=== PATIENT | male | born 1975 | race Caucasian/White ===

== ENCOUNTER 2017-09-02 16:50 | Inpatient (IN) | payer OTHER ==
[~2017-09-02] VITALS: Ht 177.8 cm; Wt 98.4 kg
[2017-09-02 16:58] VITALS: BP 143/72
[2017-09-02] MEDS ORDERED: ANDRODERM1 EAC2 PO (17:03)
[2017-09-02 17:17] LABS: ABSOLUTE BASOPHILS 0.1 thou/uL (0.0-0.2); ABSOLUTE LYMPHOCYTES 2.6 thou/uL (0.8-5.3); ABSOLUTE MONOCYTES 0.9 thou/uL (0.0-1.2); ABSOLUTE NEUTROPHILS 10.6 thou/uL (1.6-8.1); BASOPHILS 0.9 %; EOSINOPHILS 0.1 %; HEMATOCRIT 54.6 % (42.0-52.0); HEMOGLOBIN 18.1 gm/dL (14.0-18.0); LYMPHOCYTES 18.5 %; MCH 29.8 pg (26.0-34.0); MCHC 33.2 g/dL (28.0-37.0); MCV 89.7 fL (80.0-100.0); MPV 7.4 fl. (7.2-11.1); NUCLEATED RBCS 0 /100WBC; PLATELET COUNT* 279 thou/uL (150-400); POLYS 74.5 %; RBC 6.09 mil/uL (4.50-6.00); RDW-CV 12.9 % (10.5-14.5); WBC 14.2 thou/uL (4.0-11.0)
[2017-09-02 17:30] LABS: ANION GAP 10 mmol/L (7-16); BUN 15 mg/dL (7-18); CALCIUM 9.2 mg/dL (8.5-10.1); CHLORIDE 104 mmol/L (98-107); CO2 27 mmol/L (21-32); CREATININE 1.3 mg/dL (0.6-1.3); GLUCOSE 113 mg/dL (70-99); POTASSIUM 3.6 mmol/L (3.5-5.1); SODIUM 141 mmol/L (136-145)
[2017-09-02 17:34] LABS: APTT 28.2 Seconds (25.0-31.3); PROTIME 9.8 Seconds (9.20-11.50)
[2017-09-02 17:53] LABS: ALBUMIN 4.1 g/dL (3.4-5.0); ALKALINE PHOSPHATASE 54 U/L (46-116); CK-MB MASS 1.4 ng/mL (<0.5-3.6); LIPASE 182 U/L (73-393); NT-PRO BRAIN NAT PEPTIDE 1683 pg/mL (<300); SGOT 24 U/L (15-37); SGPT 44 U/L (30-65); TOTAL BILIRUBIN 0.8 mg/dL (<0.1-1.0); TOTAL PROTEIN 7.8 g/dL (6.4-8.2); TROPONIN-I LEVEL <0.06 ng/mL (<0.06)
[2017-09-02 19:33] VITALS: BP 117/68
[2017-09-02 21:00] VITALS: BP 117/70
--- NOTE | 2017-09-02 21:08 | NUR ---
PT ARRIVED TO UNIT AT 1930. PT STATED HE HAS RECENTLY STARTED TAKING TESTOSTERONE SHOTS EVERY TWO WEEKS. HE STATED THAT LAST TIME HIS HEART FELT LIKE THIS, HE WAS ALSO TAKING TESTOSTERONE SHOTS FROM THE [facility] EVERY WEEK. PT WONDERING IF MEDICATION IS MAKING HIS HEART GO INTO AFIB.
[2017-09-02 22:00] VITALS: BP 112/68
[2017-09-02 23:00] VITALS: BP 103/61
[2017-09-03] VITALS (12 sets, daily range): BP systolic 99–131; BP diastolic 61–89
--- NOTE | 2017-09-03 06:39 | NUR ---
PT NOT PROGRESSING TOWARD GOALS. WHILE PT SLEEPS, HR STAYS BETWEEN 70-90. WHILE AWAKE, PT HR INCREASES TO 120-140'S. PT STATES HIS [id number] IS CURRENTLY ON HOSPICE CARE FOR END STAGE CANCER. HAS A LOT OF STRESS IN HIS LIFE AND RECENTLY STARTED TAKING TESTOSTERONE SHOTS.
[2017-09-03 08:27] LABS: TROPONIN-I LEVEL <0.06 ng/mL (<0.06)
[2017-09-03 10:42] LABS: AMP/METHAMP Negative (Negative); BARBITURATES Negative (Negative); BENZODIAZEPINES Negative (Negative); COCAINE Negative (Negative); METHADONE Negative (Negative); OPIATES Negative (Negative); PCP Negative (Negative); THC Negative (Negative)
--- NOTE | 2017-09-03 11:17 | EKG ---
[place] [address] ELECTROCARDIOGRAM REPORT Name: CAITLIN BLANC Room: [address] ADM IN .R.#: [id number] Admission: 09/02/17 Attend Phys: Justin Addison Discharge: Date of : 79 Report #: [id number] THIS REPORT FOR: //name// [facility] ED Test Date: 2017-09-02 Test Time: 16:55:28 Pat Name: CAITLIN BLANC Department: Room: [facility] Gender: M Automation Tender: MARY : 1975 Requested By: Jarrod Werner Order Number: [id number] MD: Braxton Simms Measurements Intervals [place] Rate: 186 P: NC: QRS: 38 QRSD: 70 T: 57 QT: 238 QTc: 419 Interpretive Statements Atrial fibrillation with rapid V-rate ST depression, probably rate related Baseline wander in lead(s) V2 No previous ECG available for comparison Electronically Signed On 09-03-2017 11:17:42 REVIEW NURSE by Braxton Simms [email or web address] <ELECTRONICALLY SIGNED> By: Braxton Simms MD, [facility] 09/03/17 1117 1655 165 Braxton Simms MD, [facility] /EPI
--- NOTE | 2017-09-03 11:20 | NUR ---
PATIENT CONVERTED TO SINUS RHYTHM ON 20MG OF CARDIZEM GTT.
--- NOTE | 2017-09-03 11:32 | EKG ---
[place] [address] ELECTROCARDIOGRAM REPORT Name: CAITLIN BLANC Room: [address] ADM IN M.R.#: [id number] Admission: 09/02/17 Attend Phys: Justin Addison Discharge: Date of : 79 Report #: [id number] THIS REPORT FOR: //name// [facility] Test Date: 2017-09-03 Test Time: 10:44:18 Pat Name: CAITLIN BLANC Department: Room: [address] Gender: M Corporate Bond Trader: : 1975 Requested By: Chava Velasco Order Number: [id number] Shiela MD: Braxton Simms Measurements Intervals [place] Rate: 86 P: 53 NC: 159 QRS: 32 QRSD: 77 T: 17 QT: 318 QTc: 381 Interpretive Statements Sinus rhythm Electronically Signed On 09-03-2017 11:32:13 COMMERCIAL LINES UNDERWRITER by Braxton Simms [email or web address] <ELECTRONICALLY SIGNED> By: Braxton Simms MD, [facility] 09/03/17 1132 1044 1044 Braxton Simms MD, FACC /EPI
--- NOTE | 2017-09-03 13:38 | NUR ---
REPORT RECEIVED FROM LUISITO AGUAYO AGREED WITH PREVIOUS CHARTED ASSESSMENT. PT DENIES PAIN FISCAL ACCOUNTANT TRACING SR AT THIS TIME. PO MEDS GIVEN AND CARTIZEM GTT STOPPED PER DR BADILLO. FAMILY AT BEDSIDE. PT CHANGED TO TELE STATUS. BED IN LOWEST POSITOIN-CALL LIGHT WITHIN REACH-WILL CONTINUE TO MONITOR.
--- NOTE | 2017-09-03 14:28 | EKG ---
[place] [address] ELECTROCARDIOGRAM REPORT Name: CAITLIN BLANC Room: [address] ADM IN M.R.#: [id number] Admission: 09/02/17 Attend Phys: Justin Addison Discharge: Date of : 79 Report #: [id number] THIS REPORT FOR: //name// [facility] ED Test Date: 2017-09-02 Test Time: 17:39:17 Pat Name: CAITLIN BLANC Department: Room: [address] Gender: M Educational Assistant: BO : 1975 Requested By: Jarrod Werner Order Number: [id number] Shiela MD: Braxton Simms Measurements Intervals [place] Rate: 175 P: NM: QRS: 41 QRSD: 69 T: 31 QT: 256 QTc: 437 Interpretive Statements Atrial fibrillation Anterior infarct, old Compared to ECG 09/02/2017 16:55:28 no change Electronically Signed On 09-03-2017 14:28:22 ELEVATOR ERECTOR HELPER by Braxton Simms [email or web address] <ELECTRONICALLY SIGNED> By: Braxton Simms MD, [facility] 09/03/17 1428 1739 173 Braxton Simms MD, FACC /EPI
--- NOTE | 2017-09-03 18:03 | NUR ---
PT SITTING UP IN BED TALKING WITH FAMILY. ASSESSMENT CONSULTANT STILL TRACKING SR. O2 ON ROOM AIR NO S/S OF RESP DISTESS. DENIES PAIN. VOID VIA URINAL. TOLERATING DIET. BED IN LOWEST POSITION-CALL LIGHT WITHIN REACH-WILL CONTINUE TO MONITOR. TELE STATUS AT THIS TIME.
[2017-09-04] VITALS (9 sets, daily range): BP systolic 101–136; BP diastolic 67–90
[2017-09-04 02:52] LABS: ABSOLUTE BASOPHILS 0.1 thou/uL (0.0-0.2); ABSOLUTE EOSINOPHILS 0.1 thou/uL (0.0-0.7); ABSOLUTE LYMPHOCYTES 3.2 thou/uL (0.8-5.3); ABSOLUTE MONOCYTES 0.7 thou/uL (0.0-1.2); ABSOLUTE NEUTROPHILS 5.8 thou/uL (1.6-8.1); EOSINOPHILS 0.7 %; HEMATOCRIT 49.7 % (42.0-52.0); HEMOGLOBIN 16.5 gm/dL (14.0-18.0); LYMPHOCYTES 32.1 %; MCH 29.7 pg (26.0-34.0); MCHC 33.1 g/dL (28.0-37.0); MCV 89.5 fL (80.0-100.0); MONOCYTES 7.3 %; MPV 7.3 fl. (7.2-11.1); NUCLEATED RBCS 0 /100WBC; PLATELET COUNT* 236 thou/uL (150-400); POLYS 58.9 %; RBC 5.55 mil/uL (4.50-6.00); RDW-CV 12.9 % (10.5-14.5); WBC 9.9 thou/uL (4.0-11.0)
[2017-09-04 02:57] LABS: ANION GAP 6 mmol/L (7-16); BUN 12 mg/dL (7-18); CALCIUM 8.4 mg/dL (8.5-10.1); CHLORIDE 106 mmol/L (98-107); CHOLESTEROL 229 mg/dL (<200); CO2 29 mmol/L (21-32); CREATININE 1.2 mg/dL (0.6-1.3); GLUCOSE 93 mg/dL (70-99); HDL CHOLESTEROL 36 mg/dL (>40); LDL CHOLESTEROL 163 mg/dL (<100); POTASSIUM 4.1 mmol/L (3.5-5.1); SODIUM 141 mmol/L (136-145); TC:HDL 6.4 Ratio (Not establshd); TRIGLYCERIDE 150 mg/dL (<150); VLDL 30 mg/dL (<40)
[2017-09-04 02:58] LABS: SERUM ASSESSMENT Clear
--- NOTE | 2017-09-04 06:43 | NUR ---
PATIENT PROGRESSING TOWARDS DISCHARGE GOALS. PT STATED " I AM READY TO GO HOME, WHAT ALL NEEDS TO HAPPEN SO I CAN GO HOME" EDUCATED PATIENT ON PLAN OF CARE, VOICED UNDERSTANDING. PT HAD A GREAT NIGHT, WAS ABLE TO SLEEP . NO ACUTE CHANGES HEMODYNAMICALLY STABLE. NO COMPLAINS AT THIS TIME. WILL CONTINUE TO MONITOR. PT IS TELE.
[2017-09-04] MEDS ORDERED: ASPIRIN325 PO (10:55)
[2017-09-04] MEDS ORDERED: PROPAFENONE 15150 MG PO (10:56)
[2017-09-04] MEDS ORDERED: CARDIZEM CD 30300 M1 PO (13:56)
--- NOTE | 2017-09-04 14:45 | NUR ---
PT ASSESSMENT CHARTED. VSS. UP INDEPENDENTLY IN ROOM. NO COMPLAINTS OF PAIN. DISCHARGE PAPERWORK GONE OVER WITH PATIENT. EDUCATION REGARDING DIET GIVEN. PT DOES NOT HAVE ANY QUESTIONS AT THIS TIME. PT ESCORTED TO ER EXIT WITH AT DISCHARGE.
--- NOTE | 2017-09-04 15:54 | 2DMMODE ---
[place] [address] 2 D/M-MODE ECHOCARDIOGRAM Name: CAITLIN BLANC Room: [address] IN [facility]#: [id number] Admission: 09/02/17 Attend Phys: Andrea Higgins Discharge: 09/04/17 Date of : 79 Date of Service: 09/04/17 1554 Report #: [id number] THIS REPORT FOR: //name// APPROVED REPORT Study performed: 09/04/2017 10:44:42 EXAM: Comprehensive 2D, Doppler, and color-flow Echocardiogram Patient Location: In-Patient Room #: 006 Status: routine BSA: 2.16 HR: 89 bpm BP: 131/79 mmHg Rhythm: NSR Other Information Study Quality: Good Indications Atrial Fibrillation Chest Pain 2D Dimensions LVEF(%): 58.80 (>50%) IVSd: 12.17 (7-11mm) LVOT Diam: 21.43 (18-24mm) LVDd: 44.12 mm PWd: 10.77 (7-11mm) Ascending Ao: 30.56 (22-36mm) LVDs: 30.47 (25-40mm) Aortic Root: 35.76 mm Elizondo's LVEF: 58.80 % Volumes Left Atrial Volume (Systole) LA ESV Index: 13.10 mL/m2 Aortic Valve AoV Peak Rodney.: 0.95 m/s AO Peak Gr.: 3.61 mmHg LVOT Max P.70 mmHg AO Mean Gr.: 2.27 mmHg LVOT Mean P.17 mmHg LVOT Max V: 0.82 m/s AO V2 VTI: 15.64 cm LVOT Mean V: 0.49 m/s WILLIAMS (VTI): 3.19 cm2 LVOT V1 VTI: 13.83 [place] [address] 2 D/M-MODE ECHOCARDIOGRAM Name: GUANACOCAITLIN Fredy Room: [address] IN .R.#: [id number] Admission: 09/02/17 Attend Phys: Andrea Higgins Discharge: 09/04/17 Date of : 79 Date of Service: 09/04/17 1554 Report #: [id number] E/A Ratio: 1.22 MV Decel. Time: 215.48 ms MV E Max Rodney.: 0.59 m/s MV PHT: 62.49 ms MVA (PHT): 3.52 cm2 TDI E/Lateral E': 5.90 E/Medial E': 7.38 Medial E' Rodney.: 0.08 m/s Lateral E' Rodney.: 0.10 m/s Pulmonary Valve PV Peak Rodney.: 1.12 m/s PV Peak Gr.: 4.98 mmHg Left Ventricle The left ventricle is normal size. There is normal LV segmental wall motion. There is normal left ventricular wall thickness. Left ventricular systolic function is normal. LVEF is 60-65%. The left ventricular diastolic function is normal. Right Ventricle The right ventricle is normal size. The right ventricular systolic function is normal. Atria The left atrium size is normal. The right atrium size is normal. Aortic Valve The aortic valve is normal in structure. No aortic regurgitation is present. There is no aortic valvular stenosis. Mitral Valve The mitral valve is normal in structure. Trace mitral regurgitation. No evidence of mitral valve stenosis. Tricuspid Valve The tricuspid valve is normal in structure. Unable to assess PA pressure. Trace tricuspid regurgitation. Pulmonic Valve The pulmonary valve is normal in structure. There is no pulmonic valvular regurgitation. Great Vessels The aortic root is normal in size. IVC [place] [address] 2 D/M-MODE ECHOCARDIOGRAM Name: CAITLIN BLANC Room: [address] IN M.R.#: [id number] Admission: 09/02/17 Attend Phys: Andrea Higgins Discharge: 09/04/17 Date of : 79 Date of Service: 09/04/17 1554 Report #: [id number] collapses with >50% inspiration Pericardium There is no pericardial effusion. <Conclusion> The left ventricle is normal size. There is normal left ventricular wall thickness. Left ventricular systolic function is normal. LVEF is 60-65%. The left ventricular diastolic function is normal. Trace mitral regurgitation. Unable to assess PA pressure. Trace tricuspid regurgitation. <ELECTRONICALLY SIGNED> By: Ray Shaikh MD, FACC 09/04/17 1554 1554 1554 Ray Shaikh MD, FACC /INF
--- NOTE | 2017-09-04 16:37 | EKG ---
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
--- NOTE | 2017-09-04 17:20 | CON ---
[facility] [address] [place] [address] CONSULTATION Name: CAITLIN BLANC Room: [address] IN M.R.#: [id number] Admission: 09/02/17 Attend Phys: Justin Addison Discharge: 09/04/17 Date of : 79 Report #: [id number] THIS REPORT FOR: //name// CC: Amina Santiago DATE OF SERVICE: 09/03/2017 HISTORY OF PRESENT ILLNESS: The patient is a 42-year-old white male who I was asked to see in the hospital after he had atrial fibrillation. The patient has no previous history of heart disease. He does not exercise on a regular basis. He notes that about a year ago, he felt weak and his heart was beating irregular. Lasted about 2 days and resolved. He then did well until 2 days ago. He went to the [employer]. When he got home that night, he felt his heart beating fast and irregular. He felt somewhat lightheaded and short of breath. However, he went to bed, but when he woke up, heart was still beating fast and irregular. It persisted most of the day, so family members finally brought him to the Emergency Room last night about 6 o'clock. He was found to be in atrial fibrillation with rapid ventricular response rate. He was started on IV diltiazem. Atrial fibrillation persisted throughout the night. He finally converted to a sinus rhythm this morning. I was asked to see him for further evaluation and treatment. Denies history of exertional chest pain, dyspnea on exertion, syncope. He has had no edema. Prolonged car ride or plane ride recently. PAST MEDICAL HISTORY: He has had no major surgical procedures. He apparently did have elevated blood pressure years ago when he was under a lot of stress and was on blood pressure medication for a period of time, but he has no history of hyperlipidemia or diabetes. He takes a testosterone shot every 2 weeks for low libido. ALLERGIES: He has no known drug allergies. FAMILY HISTORY: His grandmother had atrial fibrillation. SOCIAL HISTORY: He is . He and his live in [place]. 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 No smoking, alcohol abuse. Does not abuse drugs. Rarely drinks caffeine. REVIEW OF SYSTEMS: He has had no history of stroke, asthma, peptic ulcer disease, liver disease, kidney disease, cancer, chronic skin condition. PHYSICAL EXAMINATION: GENERAL: Revealed a middle-aged male lying in bed, he appeared in no distress. VITAL SIGNS: He had a blood pressure of 120/70, pulse is 90, [place] [address] CONSULTATION Name: ACITLIN BLANC Room: [address]#: [id number] Admission: 09/02/17 Attend Phys: Justin Addison Discharge: 09/04/17 Date of : 79 Report #: [id number] HEENT: He was anicteric. Conjunctivae pink. Mucous membranes moist. NECK: Veins nondistended. Neck was supple. CHEST: Clear to auscultation. CARDIOVASCULAR: Regular rate and rhythm without murmur. ABDOMEN: Soft, nontender. EXTREMITIES: Had no edema. Posterior pulse 2+ bilaterally. SKIN: Warm, dry. NEUROLOGIC: Nonfocal. LYMPHATIC: No adenopathy. MUSCULOSKELETAL: No joint effusion. RADIOLOGICAL DATA: His ECG on arrival to the Emergency Room last night showed atrial fibrillation with a rapid ventricular response rate. ECG today shows a sinus rhythm, nonspecific ST segment change. Workup: There was a chest x-ray done in the Emergency Room last night that showed normal heart size and clear lung longoria. LABORATORY WORK: Sodium 141, creatinine 1.3, glucose 113. Liver function studies are normal. Troponin 0.06. BNP 1683. White blood cell count 14.2, hemoglobin 18.1. Urine drug screen was negative. IMPRESSION AND RECOMMENDATIONS: 1. Paroxysmal atrial fibrillation. Converted with IV diltiazem. I would check thyroid function studies. I would check an echocardiogram to look for structural heart disease. At this time, I would recommend starting antiarrhythmic therapy. I would recommend starting the patient on Rythmol. The patient has a KULWANT score of 0. I would recommend aspirin 325 mg a day, but not anticoagulation. 2. History of low libido. The patient does receive injections of testosterone. <ELECTRONICALLY SIGNED> By: Braxton Simms MD, [facility] 09/04/17 1720 1300 1915Daswati Simms MD, FAC /nt
== END 2017-09-04 14:50 | disposition home or self-care (01) | DRG 310 ==
LOC: M.ERS 16:50 → M.ICU 18:02 → M.TBA-ER 18:02 → M.ICU 19:36
PROVIDERS: Family Medicine; Internal Medicine; ADMIT Internal Medicine
DX: I48.0 Paroxysmal atrial fibrillation (principal); F41.9 Anxiety disorder, unspecified; Z82.49 Family history of ischemic heart disease and other diseases of the circulatory system; Z28.21 Immunization not carried out because of patient refusal